=== PATIENT | female | born 1985 | race Caucasian/White ===

== ENCOUNTER 2024-01-09 15:41 | Emergency (ER) | payer SELFPAY ==
[~2024-01-09] VITALS: Ht 149.9 cm; Wt 72.6 kg
[2024-01-09 15:56] VITALS: BP_SYST 95; PULSE 90; RESP 18; TEMP 98.6; O2SAT 82
[2024-01-09] MEDS: FLUORESCEIN SODIUM 1 MG OPHTHALMIC STRIP OP ONE (16:44)
[2024-01-09] MEDS: ACETAMINOPHEN 500 MG TABLET PO ONE (16:44)
[2024-01-09] MEDS: TETRACAINE HCL/PF 0.5% OPHTHALMIC DROPS 4 ML OP ONE (16:44)
[2024-01-09] MEDS ORDERED: LORA10TA7 PO (17:39)
[2024-01-09] MEDS ORDERED: OFLO5DRO6 LEFT EYE ×2 (17:39→20:14)
[2024-01-09] MEDS ORDERED: TRAM50TA2 PO (17:39)
[2024-01-09] MEDS ORDERED: ACET-2634 PO (17:39)
[2024-01-09] MEDS ORDERED: SULF1TAB48 PO (17:39)
[2024-01-09 18:20] VITALS: BP_SYST 90; PULSE 74; RESP 18; TEMP 97.6; O2SAT 98
[2024-01-09] MEDS ORDERED: NAPR-690 PO (20:05)
[2024-01-09] MEDS ORDERED: [UNRECOGNIZED DRUG - CODE] LEFT EYE (20:05)
[2024-01-09] MEDS ORDERED: CEPH-548 PO (20:05)
== END 2024-01-09 18:23 | disposition home or self-care (01) ==
LOC: SED 15:41
DX: S05.02XA Injury of conjunctiva and corneal abrasion without foreign body, left eye, initial encounter (principal); H10.9 Unspecified conjunctivitis; Z79.899 Other long term (current) drug therapy; Z79.2 Long term (current) use of antibiotics; X58.XXXA Exposure to other specified factors, initial encounter; Y93.89 Activity, other specified; Y92.89 Other specified places as the place of occurrence of the external cause; Y99.8 Other external cause status
CPT/HCPCS: 99283